=== PATIENT | male | born 1955 | race African-American/Black ===

== ENCOUNTER 2019-07-04 00:16 | Inpatient (IN) | payer BC ==
[~2019-07-04] VITALS: Ht 177.8 cm; Wt 95.3 kg
[2019-07-04] MEDS ORDERED: CLONIDINE 0.2MG TABLET PO ONE (02:15)
[2019-07-04 04:04] LABS: BASOPHILS % 0.6 % (0.0-2.0); EOSINOPHILS % 0.4 % (0.0-5.0); HEMATOCRIT. 38.7 % (42.0-52.0); LYMPHOCYTES % 7.9 % (20.0-50.0); MEAN CORPUSCULAR VOLUME 86.5 fL (80.0-94.0); MEAN PLATELET VOLUME 10.5 fl (7.4-10.4); MONOCYTES % 2.7 % (2.0-8.0); NEUTROPHILS % 88.4 % (40.0-76.0); PLATELET 184 x1000/uL (130-400); RED BLOOD CELL COUNT 4.48 mill/uL (4.7-6.1); RED CELL DISTRIBUTION WIDTH 14.9 % (11.6-14.6)
[2019-07-04 04:09] LABS: CHLORIDE 97 mEq/L (98-107)
[2019-07-04 04:11] LABS: PROTHROMBIN TIME 10.9 sec (9.6-11.0)
[2019-07-04] MEDS ORDERED: SODIUM CHLORIDE 0.9% 1,000 ML IV ONE (04:45)
[2019-07-04 05:28] LABS: CLARITY URINE CLEAR (CLEAR); COLOR URINE YELLOW (YELLOW); KETONES URINE TRACE (NEGATIVE); LEUKOCYTE ESTERASE URINE NEGATIVE (NEGATIVE); NITRITE URINE NEGATIVE (NEGATIVE); OCCULT BLOOD URINE NEGATIVE (NEGATIVE); PROTEIN URINE NEGATIVE (NEGATIVE); SPECIFIC GRAVITY URINE 1.021 (1.005-1.030); UROBILINOGEN URINE 0.2 E.U./dL (0.2-1.0)
[2019-07-04] MEDS ORDERED: GUAIFENESIN 200MG/10ML SUGAR FREE UDC PO PRN (09:30)
[2019-07-04] MEDS ORDERED: CLONIDINE 0.1MG TABLET PO PRN (09:30)
[2019-07-04] MEDS ORDERED: NITROGLYCERIN 0.4MG TABLET SL SL PRN (09:30)
[2019-07-04] MEDS ORDERED: DOCUSATE SODIUM 100MG CAPSULE PO PRN (09:30)
[2019-07-04] MEDS ORDERED: KETOROLAC 15MG/ML VIAL IV PRN (09:30)
[2019-07-04] MEDS ORDERED: ZOLPIDEM TARTRATE 5MG TABLET PO PRN (09:30)
[2019-07-04] MEDS ORDERED: IPRATROPIUM/ALBUTEROL 0.5-3(2.5)MG/3ML NEB NEB PRN (09:30)
[2019-07-04] MEDS ORDERED: MAGNESIUM/ALUMINUM HYDROXIDE/SIMETHICONE 30ML UDC PO PRN (09:30)
[2019-07-04] MEDS ORDERED: DEXTROSE 50% WATER 50ML SYRINGE IV PRN (09:30)
[2019-07-04] MEDS ORDERED: ONDANSETRON HCL 4MG/2ML INJ IV PRN (09:30)
[2019-07-04] MEDS ORDERED: INSULIN GLARGINE UD 100 UNITS/ML SYR SUBCUT SCH (10:00)
[2019-07-04] MEDS: INSULIN LISPRO 100 UNITS/ML SUBCUT SCH ×4 (11:05→21:00)
[2019-07-04] MEDS: ACETAMINOPHEN 325MG TABLET PO PRN ×2 (11:06→19:39)
[2019-07-04] MEDS: BLOOD SUGAR DIAGNOSTIC STRIP TEST SCH ×4 (11:09→21:55)
[2019-07-04 15:22] LABS: CREATINE KINASE 110 IU/L (39-308)
[2019-07-04 15:23] LABS: CREATINE KINASE MB FRACTION 1.1 ng/mL (0.5-3.6)
[2019-07-04 20:00] VITALS: BP 158/98
[2019-07-04 20:30] VITALS: BP 158/98
[2019-07-04] MEDS: FAMOTIDINE 20MG TABLET PO SCH (22:00)
[2019-07-04] MEDS: AMLODIPINE 10MG TABLET PO SCH (22:01)
[2019-07-04] MEDS: ENOXAPARIN 40MG/0.4ML SYR SUBCUT SCH (22:01)
[2019-07-04] MEDS: LISINOPRIL 20MG TABLET PO SCH (22:03)
[2019-07-04 23:52] VITALS: BP 143/80
[2019-07-05 00:57] LABS: CREATINE KINASE 102 IU/L (39-308)
[2019-07-05 00:58] LABS: CREATINE KINASE MB FRACTION 1.2 ng/mL (0.5-3.6)
[2019-07-05 04:00] VITALS: BP 135/82
[2019-07-05] MEDS: BLOOD SUGAR DIAGNOSTIC STRIP TEST SCH ×4 (07:20→21:01)
[2019-07-05] MEDS ORDERED: ASPI81TA47 MT (07:33)
[2019-07-05] MEDS ORDERED: CLON-457 PO (07:34)
[2019-07-05] MEDS ORDERED: HYDR-4135 MT (07:35)
[2019-07-05] MEDS ORDERED: METF-816 PO (07:37)
[2019-07-05] MEDS ORDERED: AMLO2.5T2 MT (07:43)
[2019-07-05] MEDS: INSULIN LISPRO 100 UNITS/ML SUBCUT SCH ×4 (07:50→22:16)
[2019-07-05 08:00] VITALS: BP 147/86
[2019-07-05] MEDS ORDERED: ASPIRIN 325MG EC TABLET PO SCH (09:00)
[2019-07-05] MEDS: LISINOPRIL 20MG TABLET PO SCH ×2 (09:50→20:56)
[2019-07-05] MEDS: AMLODIPINE 10MG TABLET PO SCH (09:51)
[2019-07-05] MEDS: FAMOTIDINE 20MG TABLET PO SCH ×2 (09:52→20:55)
[2019-07-05] MEDS ORDERED: INSULIN GLARGINE UD 100 UNITS/ML SYR SUBCUT SCH (11:30)
[2019-07-05 12:00] VITALS: BP 151/92
[2019-07-05 16:00] VITALS: BP 165/104
[2019-07-05] MEDS: ACETAMINOPHEN 325MG TABLET PO PRN ×2 (17:22→22:17)
[2019-07-05] MEDS ORDERED: AMLO10TA80 MT (17:35)
[2019-07-05] MEDS ORDERED: INSU100I28 SQ (17:35)
[2019-07-05] MEDS ORDERED: LOSA50TA41 MT (17:35)
[2019-07-05] MEDS ORDERED: METO-539 MT (17:35)
[2019-07-05 20:00] VITALS: BP 129/75
[2019-07-05] MEDS: ENOXAPARIN 40MG/0.4ML SYR SUBCUT SCH (20:54)
[2019-07-05] MEDS ORDERED: METOPROLOL TARTRATE 50MG TABLET PO SCH (21:00)
[2019-07-05 22:34] VITALS: BP 129/75
== END 2019-07-05 23:20 | disposition home or self-care (01) | DRG 637 ==
LOC: ER 01:10 → 6WST 04:54 → EDBEDREQ 04:57 → EDBEDREQTM 04:57 → ENRESERV 18:37
PROVIDERS: ADMIT Internal Medicine; ATTEND Internal Medicine
DX: E11.65 Type 2 diabetes mellitus with hyperglycemia (principal); E11.00 Type 2 diabetes mellitus with hyperosmolarity without nonketotic hyperglycemic-hyperosmolar coma (NKHHC); E87.1 Hypo-osmolality and hyponatremia; D64.9 Anemia, unspecified; E87.8 Other disorders of electrolyte and fluid balance, not elsewhere classified; I10 Essential (primary) hypertension; I16.0 Hypertensive urgency; Z79.899 Other long term (current) drug therapy; Z91.11 Patient's noncompliance with dietary regimen; Z91.14 Patient's other noncompliance with medication regimen; Z91.19 Patient's noncompliance with other medical treatment and regimen
CPT/HCPCS: 36415; 80053; 80061; 81003; 82550; 82553; 82962; 83036; 84484; 85025; 93005; 93970; 99285; J1650; J1815; J7030

== ENCOUNTER 2021-10-21 10:02 | Inpatient (IN) | payer BC ==
[~2021-10-21] VITALS: Ht 182.9 cm; Wt 101.2 kg
[2021-10-21] VITALS (20 sets, daily range): BP systolic 117–178; BP diastolic 70–136
[~2021-10-21 10:02] MED LIST: AMLO10TA80 MT; ASPI81TA47 MT; HYDR-4135 MT; INSU100I28 SQ; LOSA50TA41 MT; METF-874 PO; METO-539 MT
[2021-10-21] MEDS ORDERED: LORAZEPAM 2MG/ML CPJ IV ONE (10:45)
[2021-10-21 10:54] LABS: HEMATOCRIT. 37.7 % (42.0-52.0); HEMOGLOBIN. 12.2 g/dL (14.0-18.0); MEAN CORPUSCULAR HEMOGLOBIN 27.2 pg (28.0-32.0); MEAN CORPUSCULAR VOLUME 84.2 fL (80.0-94.0); MEAN PLATELET VOLUME 9.7 fl (7.4-10.4); PLATELET 173 x1000/uL (130-400); RED BLOOD CELL COUNT 4.48 mill/uL (4.7-6.1); RED CELL DISTRIBUTION WIDTH 18.1 % (11.6-14.6)
[2021-10-21] MEDS ORDERED: HYDRALAZINE 20MG/ML VIAL IV ONE (11:00)
[2021-10-21] MEDS ORDERED: IOHEXOL-350 100 ML BOTTLE ONE (11:00)
[2021-10-21] MEDS ORDERED: LEVETIRACETAM 1000MG PREMIX 100 ML IV ONE (11:00)
[2021-10-21 11:04] LABS: INR 1.1; PROTHROMBIN TIME 11.7 sec (9.6-11.0)
[2021-10-21 11:05] LABS: CHLORIDE 98 mEq/L (98-107)
[2021-10-21 11:12] LABS: ETHANOL BLOOD < 10 mg/dL
[2021-10-21] MEDS ORDERED: PROPOFOL 10MG/ML 100ML 100 ML IV ONE (11:15)
[2021-10-21] MEDS ORDERED: IPRATROPIUM BROMIDE (0.02%) 0.5MG/2.5ML NEB HHN STA (11:40)
[2021-10-21] MEDS ORDERED: ALBUTEROL (0.083%) 2.5MG/3ML NEB HHN STA (11:40)
[2021-10-21 11:43] LABS: PLATELET ESTIMATE NORMAL
[2021-10-21] MEDS ORDERED: SODIUM CHLORIDE 0.9% 1,000 ML IV ONE (11:45)
[2021-10-21 12:12] LABS: CLARITY URINE CLEAR (CLEAR); COLOR URINE YELLOW (YELLOW); KETONES URINE 1+ (NEGATIVE); LEUKOCYTE ESTERASE URINE NEGATIVE (NEGATIVE); NITRITE URINE NEGATIVE (NEGATIVE); OCCULT BLOOD URINE 1+ (NEGATIVE); PH URINE 6.5 (4.5-8.0); PROTEIN URINE 2+ (NEGATIVE); SPECIFIC GRAVITY URINE 1.029 (1.005-1.030); UROBILINOGEN URINE 0.2 E.U./dL (0.2-1.0)
[2021-10-21] MEDS ORDERED: LIDOCAINE HCL/PF 1% 10 MG/ML 5ML VIAL ONE (12:40)
[2021-10-21 12:50] LABS: *AMPHETAMINES SCREEN URINE NEGATIVE (NEGATIVE); *BARBITURATES SCREEN URINE NEGATIVE (NEGATIVE); *BENZODIAZEPINES SCREEN URINE NEGATIVE (NEGATIVE); *COCAINE SCREEN URINE NEGATIVE (NEGATIVE); CANNABINOID URINE SCREEN NEGATIVE (NEGATIVE); METHADONE URINE SCREEN NEGATIVE (NEGATIVE); OPIATES URINE SCREEN NEGATIVE (NEGATIVE); PHENCYCLIDINE URINE SCREEN NEGATIVE (NEGATIVE)
[2021-10-21] MEDS ORDERED: ACETAMINOPHEN 650MG SUPP PR ONE (13:15)
[2021-10-21] MEDS ORDERED: SODIUM CHLORIDE 0.9% 1000ML BAG (SEPSIS BOLUS) IV ONE (13:15)
[2021-10-21] MEDS ORDERED: PIPERACILLIN/TAZ 3.375G PREMIX 50 ML IV ONE (13:15)
[2021-10-21] MEDS ORDERED: VANCOMYCIN 1G PREMIX 200 ML IV ONE (13:15)
[2021-10-21] MEDS: LABETALOL 5MG/ML SYR 20 MG/4 ML SYRINGE IV ONE ×2 (13:42→14:36)
[2021-10-21 13:57] LABS: BG BASE EXCESS 2.4 mmol/L (-2.0-2.0); BG CARBOXYHEMOGLOBIN 0.4 % (0.5-1.5); BG DEOXYHEMOGLOBIN 0.8 % (0.0-5.0); BG FRACTION INSPIRED OXYGEN 60; BG HCO3 ACT 26.8 mmol/L (22.0-26.0); BG METHEMOGLOBIN 0.4 % (0.0-1.5); BG OXYGEN SATURATION 99.2 % (92.0-98.5); BG OXYHEMOGLOBIN 98.4 % (94.0-97.0); BG PCO2 40.9 mmHg (35.0-45.0); BG PH 7.434 (7.350-7.450); BG PO2 158.9 mmHg (75.0-100.0); BG SAMPLE SITE LEFT BRACHIAL; BG TOTAL HEMOGLOBIN 13.3 g/dL (12.0-18.0); BG VENT MODE VENT - AC
[2021-10-21] MEDS ORDERED: IPRATROPIUM/ALBUTEROL 0.5-3(2.5)MG/3ML NEB NEB PRN (17:00)
[2021-10-21] MEDS: SODIUM CHLORIDE 0.9% 1,000 ML IV SCH (17:29)
[2021-10-21] MEDS: PANTOPRAZOLE SODIUM 40 MG/VIAL IV SCH (17:32)
[2021-10-21] MEDS: PROPOFOL 10MG/ML 100ML 100 ML IV PRN ×2 (17:52→20:37)
[2021-10-21] MEDS ORDERED: CEFTRIAXONE 2 G PREMIX 50 ML IV SCH (18:15)
[2021-10-21] MEDS ORDERED: DEXTROSE 50% WATER 50ML SYRINGE IV PRN (19:00)
[2021-10-21] MEDS ORDERED: LISI2.5T47 MT (19:03)
[2021-10-21] MEDS ORDERED: HYDR12.54 MT (19:03)
[2021-10-21] MEDS ORDERED: INSULIN LISPRO 100 UNITS/ML SUBCUT NR (19:30)
[2021-10-21] MEDS: HYDRALAZINE 20MG/ML VIAL IV PRN (19:41)
[2021-10-21] MEDS: VANCOMYCIN 750MG PREMIX 150 ML IV SCH (19:44)
[2021-10-21] MEDS: CEFTRIAXONE 2 G in DEXTROSE 5% WATER 50 ML IV SCH (20:26)
[2021-10-21] MEDS: BLOOD SUGAR DIAGNOSTIC STRIP TEST SCH (20:39)
[2021-10-21] MEDS ORDERED: INSULIN REGULAR (HUMULIN R) 300UNITS/3ML VIAL SUBCUT NR (21:00)
[2021-10-21] MEDS: WATER IV SCH (21:02)
[2021-10-21] MEDS: DEXT 5% IV SCH (21:02)
[2021-10-21] MEDS: ACYCLOVIR IV SCH (21:02)
[2021-10-21] MEDS: INSULIN LISPRO 100 UNITS/ML SUBCUT SCH (21:05)
[2021-10-21] MEDS: AMPICILLIN 2,000 MG in SODIUM CHLORIDE 0.9% 100 ML IV SCH (23:19)
[2021-10-21] MEDS ORDERED: THIAMINE HCL 100 MG in SODIUM CHLORIDE 0.9% 49 ML IV NR (23:30)
[2021-10-21 23:37] LABS: CHLORIDE 103 mEq/L (98-107)
[2021-10-21 23:49] LABS: CREATINE KINASE 370 IU/L (39-308); CREATINE KINASE MB FRACTION < 1.0 ng/mL (0.5-3.6)
[2021-10-22] VITALS (87 sets, daily range): BP systolic 69–191; BP diastolic 34–114
[2021-10-22] MEDS: BLOOD SUGAR DIAGNOSTIC STRIP TEST SCH ×5 (00:08→20:43)
[2021-10-22] MEDS ORDERED: DEXT 5%/0.9% NACL KCL 30MEQ/L 1,000 ML IV NR (00:30)
[2021-10-22] MEDS ORDERED: POTASSIUM CHLORIDE IV NR (00:45)
[2021-10-22] MEDS ORDERED: DEXT IV NR (00:45)
[2021-10-22] MEDS ORDERED: NACL IV NR (00:45)
[2021-10-22] MEDS: SODIUM CHLORIDE 0.9% 1,000 ML IV SCH ×2 (02:25→12:04)
[2021-10-22] MEDS: AMPICILLIN 2,000 MG in SODIUM CHLORIDE 0.9% 100 ML IV SCH ×5 (03:12→20:29)
[2021-10-22] MEDS: PROPOFOL 10MG/ML 100ML 100 ML IV PRN ×2 (03:23→08:12)
[2021-10-22] MEDS: HYDRALAZINE 20MG/ML VIAL IV PRN ×4 (04:18→22:20)
[2021-10-22] MEDS: ACYCLOVIR IV SCH ×3 (05:00→20:31)
[2021-10-22] MEDS: DEXT 5% IV SCH ×3 (05:00→20:31)
[2021-10-22] MEDS: WATER IV SCH ×3 (05:00→20:31)
[2021-10-22 05:48] LABS: BASOPHILS % 0.5 % (0.0-2.0); HEMATOCRIT. 35.4 % (42.0-52.0); HEMOGLOBIN. 11.5 g/dL (14.0-18.0); LYMPHOCYTES % 11.4 % (20.0-50.0); MEAN CORPUSCULAR HEMOGLOBIN 26.8 pg (28.0-32.0); MEAN CORPUSCULAR VOLUME 82.9 fL (80.0-94.0); MEAN PLATELET VOLUME 9.9 fl (7.4-10.4); MONOCYTES % 8.9 % (2.0-8.0); NEUTROPHILS % 79.2 % (40.0-76.0); PLATELET 161 x1000/uL (130-400); RED BLOOD CELL COUNT 4.27 mill/uL (4.7-6.1); RED CELL DISTRIBUTION WIDTH 18.1 % (11.6-14.6)
[2021-10-22 06:22] LABS: CREATINE KINASE MB FRACTION 1.3 ng/mL (0.5-3.6)
[2021-10-22] MEDS: INSULIN LISPRO 100 UNITS/ML SUBCUT SCH ×4 (06:28→20:47)
[2021-10-22 06:32] LABS: VITAMIN B12 SERUM 1739 pg/mL (211-911)
[2021-10-22 06:47] LABS: FOLIC ACID (FOLATE) SERUM > 20.00 ng/mL (>5.38)
[2021-10-22] MEDS: CEFTRIAXONE 2 G in DEXTROSE 5% WATER 50 ML IV SCH ×2 (08:09→20:29)
[2021-10-22] MEDS: PANTOPRAZOLE SODIUM 40 MG/VIAL IV SCH (08:09)
[2021-10-22] MEDS: ENOXAPARIN 40MG/0.4ML SYR SUBCUT SCH (08:09)
[2021-10-22] MEDS ORDERED: LEVETIRACETAM 500 MG in SODIUM CHLORIDE 0.9% 100 ML IV SCH (08:30)
[2021-10-22 08:56] LABS: BG BASE EXCESS 0.9 mmol/L (-2.0-2.0); BG CARBOXYHEMOGLOBIN 0.3 % (0.5-1.5); BG DEOXYHEMOGLOBIN 2.4 % (0.0-5.0); BG METHEMOGLOBIN 0.3 % (0.0-1.5); BG OXYGEN SATURATION 97.6 % (92.0-98.5); BG PCO2 38.2 mmHg (35.0-45.0); BG PH 7.434 (7.350-7.450); BG SAMPLE SITE RIGHT RADIAL; BG TOTAL HEMOGLOBIN 12.2 g/dL (12.0-18.0); BG VENT MODE VENT - AC
[2021-10-22] MEDS: VANCOMYCIN 750MG PREMIX 150 ML IV SCH (09:15)
[2021-10-22] MEDS: LEVETIRACETAM 500MG PREMIX 100 ML IV SCH ×2 (10:46→20:31)
[2021-10-22] MEDS: INSULIN GLARGINE 100 UNITS/ML SUBCUT SCH (12:05)
[2021-10-22] MEDS ORDERED: PROPOFOL 10MG/ML 100ML 100 ML IV PRN (16:30)
[2021-10-22] MEDS: THIAMINE HCL 100 MG in SODIUM CHLORIDE 0.9% 49 ML IV SCH (17:02)
[2021-10-22] MEDS: AMLODIPINE 10MG TABLET PO SCH ×2 (17:13→17:25)
[2021-10-22] MEDS ORDERED: LABETALOL 5MG/ML SYR 20 MG/4 ML SYRINGE IV SCH (17:15)
[2021-10-22] MEDS: ASPIRIN 81MG TABLET PO SCH (17:25)
[2021-10-22 17:39] LABS: BG BASE EXCESS 1.8 mmol/L (-2.0-2.0); BG CARBOXYHEMOGLOBIN 0.3 % (0.5-1.5); BG DEOXYHEMOGLOBIN 1.7 % (0.0-5.0); BG HCO3 ACT 26.6 mmol/L (22.0-26.0); BG METHEMOGLOBIN 0.3 % (0.0-1.5); BG OXYGEN SATURATION 98.3 % (92.0-98.5); BG OXYHEMOGLOBIN 97.7 % (94.0-97.0); BG PCO2 42.2 mmHg (35.0-45.0); BG PH 7.417 (7.350-7.450); BG PO2 115.1 mmHg (75.0-100.0); BG SAMPLE SITE RIGHT RADIAL; BG TOTAL HEMOGLOBIN 12.7 g/dL (12.0-18.0); BG TOTAL RESPIRATORY RATE 10 b/min; BG VENT MODE VENT - CPAP
[2021-10-22] MEDS ORDERED: HALOPERIDOL LACTATE 5MG/ML VIAL IM NR ×2 (17:39→18:00)
[2021-10-22] MEDS ORDERED: LABETALOL 5MG/ML SYR 20 MG/4 ML SYRINGE IV NR (18:00)
[2021-10-22] MEDS ORDERED: LORAZEPAM 2MG/ML CPJ IV PRN (18:00)
[2021-10-22] MEDS ORDERED: VANCOMYCIN 750 MG in DEXT 5% WATER 250 ML IV SCH (20:00)
[2021-10-22] MEDS: ATORVASTATIN CALCIUM 40MG TABLET PO SCH (20:25)
[2021-10-22] MEDS ORDERED: ATORVASTATIN CALCIUM 40MG TABLET PO SCH (21:00)
[2021-10-23] VITALS (34 sets, daily range): BP systolic 127–196; BP diastolic 69–139
[2021-10-23] MEDS: AMPICILLIN 2,000 MG in SODIUM CHLORIDE 0.9% 100 ML IV SCH ×4 (00:16→12:23)
[2021-10-23] MEDS: SODIUM CHLORIDE 0.9% 1,000 ML IV SCH ×2 (00:18→08:31)
[2021-10-23] MEDS ORDERED: VANCOMYCIN 1GM PMX (XELLIA) 200 ML IV SCH (04:00)
[2021-10-23 05:34] LABS: BASOPHILS % 0.4 % (0.0-2.0); HEMATOCRIT. 35.6 % (42.0-52.0); HEMOGLOBIN. 11.5 g/dL (14.0-18.0); MEAN CORPUSCULAR VOLUME 83.9 fL (80.0-94.0); MONOCYTES % 6.1 % (2.0-8.0); NEUTROPHILS % 83.5 % (40.0-76.0); PLATELET 131 x1000/uL (130-400); RED BLOOD CELL COUNT 4.25 mill/uL (4.7-6.1); RED CELL DISTRIBUTION WIDTH 18.3 % (11.6-14.6)
[2021-10-23] MEDS: BLOOD SUGAR DIAGNOSTIC STRIP TEST SCH ×4 (05:47→21:12)
[2021-10-23] MEDS: ACYCLOVIR IV SCH ×2 (05:48→13:23)
[2021-10-23] MEDS: WATER IV SCH ×2 (05:48→13:23)
[2021-10-23] MEDS: DEXT 5% IV SCH ×2 (05:48→13:23)
[2021-10-23] MEDS: INSULIN LISPRO 100 UNITS/ML SUBCUT SCH ×4 (06:54→21:00)
[2021-10-23] MEDS: CEFTRIAXONE 2 G in DEXTROSE 5% WATER 50 ML IV SCH (07:44)
[2021-10-23] MEDS: LEVETIRACETAM 500MG PREMIX 100 ML IV SCH ×2 (08:31→21:04)
[2021-10-23] MEDS: CLOPIDOGREL 75MG TABLET PO SCH (08:31)
[2021-10-23] MEDS: ASPIRIN 81MG TABLET PO SCH (08:31)
[2021-10-23] MEDS: PANTOPRAZOLE SODIUM 40 MG/VIAL IV SCH (08:31)
[2021-10-23] MEDS: ENOXAPARIN 40MG/0.4ML SYR SUBCUT SCH (08:31)
[2021-10-23] MEDS: AMLODIPINE 10MG TABLET PO SCH (08:32)
[2021-10-23] MEDS: ONDANSETRON HCL 4MG/2ML INJ IV PRN (09:01)
[2021-10-23] MEDS: THIAMINE HCL 100 MG in SODIUM CHLORIDE 0.9% 49 ML IV SCH (09:54)
[2021-10-23] MEDS: INSULIN GLARGINE 100 UNITS/ML SUBCUT SCH (10:00)
[2021-10-23] MEDS: METOPROLOL TARTRATE 25MG TABLET PO SCH ×2 (10:00→21:03)
[2021-10-23] MEDS: HYDRALAZINE 20MG/ML VIAL IV PRN (10:52)
[2021-10-23] MEDS ORDERED: METOCLOPRAMIDE HCL 10MG/2ML VIAL IV PRN (11:45)
[2021-10-23] MEDS: DEXT 5%/0.9% NACL 1,000 ML IV SCH (12:23)
[2021-10-23 13:10] LABS: HIV SCREEN 4G Non Reactive (Non Reactive)
[2021-10-23] MEDS: ATORVASTATIN CALCIUM 40MG TABLET PO SCH (21:03)
[2021-10-23] MEDS: ACETAMINOPHEN 325MG TABLET PO PRN (21:38)
[2021-10-23] MEDS ORDERED: VANCOMYCIN 1G PREMIX 200 ML IV SCH (22:00)
[2021-10-24] VITALS (7 sets, daily range): BP systolic 137–187; BP diastolic 84–104
[2021-10-24] MEDS: DEXT 5%/0.9% NACL 1,000 ML IV SCH (02:52)
[2021-10-24] MEDS: HYDRALAZINE 20MG/ML VIAL IV PRN ×2 (05:08→16:00)
[2021-10-24] MEDS: ACETAMINOPHEN 325MG TABLET PO PRN (06:06)
[2021-10-24] MEDS: BLOOD SUGAR DIAGNOSTIC STRIP TEST SCH ×4 (07:10→20:44)
[2021-10-24 07:27] LABS: BASOPHILS % 0.4 % (0.0-2.0); EOSINOPHILS % 0.4 % (0.0-5.0); HEMATOCRIT. 34.1 % (42.0-52.0); LYMPHOCYTES % 14.2 % (20.0-50.0); MEAN CORPUSCULAR HEMOGLOBIN 27.4 pg (28.0-32.0); MEAN PLATELET VOLUME 10.3 fl (7.4-10.4); MONOCYTES % 7.7 % (2.0-8.0); NEUTROPHILS % 77.3 % (40.0-76.0); PLATELET 121 x1000/uL (130-400); RED BLOOD CELL COUNT 4.02 mill/uL (4.7-6.1); RED CELL DISTRIBUTION WIDTH 18.1 % (11.6-14.6)
[2021-10-24] MEDS: INSULIN LISPRO 100 UNITS/ML SUBCUT SCH ×4 (07:40→20:44)
[2021-10-24] MEDS ORDERED: CEFTRIAXONE 2 G PREMIX 50 ML IV SCH (08:00)
[2021-10-24] MEDS: PANTOPRAZOLE SODIUM 40 MG/VIAL IV SCH (08:43)
[2021-10-24] MEDS: CEFTRIAXONE 2 G in DEXTROSE 5% WATER 50 ML IV SCH (08:43)
[2021-10-24] MEDS: CLOPIDOGREL 75MG TABLET PO SCH (08:44)
[2021-10-24] MEDS: ASPIRIN 81MG TABLET PO SCH (08:44)
[2021-10-24] MEDS: METOPROLOL TARTRATE 25MG TABLET PO SCH (08:44)
[2021-10-24] MEDS: AMLODIPINE 10MG TABLET PO SCH (08:44)
[2021-10-24] MEDS: ENOXAPARIN 40MG/0.4ML SYR SUBCUT SCH (08:45)
[2021-10-24 08:58] LABS: CHLORIDE 113 mEq/L (98-107)
[2021-10-24] MEDS: THIAMINE HCL 100 MG in SODIUM CHLORIDE 0.9% 49 ML IV SCH (09:19)
[2021-10-24] MEDS ORDERED: POTASSIUM CHLORIDE 20MEQ TABLET SR PO NR (10:30)
[2021-10-24] MEDS: INSULIN GLARGINE 100 UNITS/ML SUBCUT SCH (11:09)
[2021-10-24] MEDS: LEVETIRACETAM 500MG PREMIX 100 ML IV SCH ×2 (11:10→20:44)
[2021-10-24] MEDS: ATORVASTATIN CALCIUM 40MG TABLET PO SCH (20:43)
[2021-10-24] MEDS: METOPROLOL TARTRATE 50MG TABLET PO SCH (20:44)
[2021-10-25] VITALS (7 sets, daily range): BP systolic 163–183; BP diastolic 85–103
[2021-10-25] MEDS: HYDRALAZINE 20MG/ML VIAL IV PRN ×3 (00:13→16:54)
[2021-10-25] MEDS: BLOOD SUGAR DIAGNOSTIC STRIP TEST SCH ×4 (06:42→20:35)
[2021-10-25] MEDS: INSULIN LISPRO 100 UNITS/ML SUBCUT SCH ×4 (06:43→20:35)
[2021-10-25 07:16] LABS: BASOPHILS % 0.4 % (0.0-2.0); EOSINOPHILS % 1.5 % (0.0-5.0); HEMATOCRIT. 35.9 % (42.0-52.0); HEMOGLOBIN. 11.8 g/dL (14.0-18.0); LYMPHOCYTES % 20.1 % (20.0-50.0); MEAN CORPUSCULAR HEMOGLOBIN 27.5 pg (28.0-32.0); MEAN CORPUSCULAR VOLUME 83.3 fL (80.0-94.0); MEAN PLATELET VOLUME 10.4 fl (7.4-10.4); MONOCYTES % 10.6 % (2.0-8.0); NEUTROPHILS % 67.4 % (40.0-76.0); PLATELET 133 x1000/uL (130-400); RED BLOOD CELL COUNT 4.31 mill/uL (4.7-6.1); RED CELL DISTRIBUTION WIDTH 17.7 % (11.6-14.6)
[2021-10-25 08:01] LABS: CHLORIDE 106 mEq/L (98-107)
[2021-10-25] MEDS: ENOXAPARIN 40MG/0.4ML SYR SUBCUT SCH (08:22)
[2021-10-25] MEDS: ASPIRIN 81MG TABLET PO SCH (08:23)
[2021-10-25] MEDS: CLOPIDOGREL 75MG TABLET PO SCH (08:23)
[2021-10-25] MEDS: METOPROLOL TARTRATE 50MG TABLET PO SCH ×2 (08:23→20:35)
[2021-10-25] MEDS: AMLODIPINE 10MG TABLET PO SCH (08:23)
[2021-10-25] MEDS: CEFTRIAXONE 2 G in DEXTROSE 5% WATER 50 ML IV SCH (08:23)
[2021-10-25] MEDS: PANTOPRAZOLE SODIUM 40 MG/VIAL IV SCH (08:23)
[2021-10-25] MEDS: INSULIN GLARGINE 100 UNITS/ML SUBCUT SCH (09:14)
[2021-10-25] MEDS ORDERED: LOSARTAN POTASSIUM 25 MG TABLET PO SCH (09:15)
[2021-10-25] MEDS ORDERED: POTASSIUM CHLORIDE 20MEQ TABLET SR PO NR (09:15)
[2021-10-25] MEDS: LEVETIRACETAM 500MG PREMIX 100 ML IV SCH ×2 (09:45→20:34)
[2021-10-25 10:39] LABS: BASOPHILS % 0.4 % (0.0-2.0); EOSINOPHILS % 1.3 % (0.0-5.0); HEMATOCRIT. 34.9 % (42.0-52.0); HEMOGLOBIN. 11.3 g/dL (14.0-18.0); MEAN CORPUSCULAR HEMOGLOBIN 27.1 pg (28.0-32.0); MEAN CORPUSCULAR VOLUME 83.9 fL (80.0-94.0); MEAN PLATELET VOLUME 9.8 fl (7.4-10.4); MONOCYTES % 9.9 % (2.0-8.0); NEUTROPHILS % 72.4 % (40.0-76.0); PLATELET 136 x1000/uL (130-400); RED BLOOD CELL COUNT 4.16 mill/uL (4.7-6.1); RED CELL DISTRIBUTION WIDTH 18.1 % (11.6-14.6)
[2021-10-25 10:58] LABS: CHLORIDE 104 mEq/L (98-107)
[2021-10-25] MEDS ORDERED: POTASSIUM CHLORIDE 20MEQ/PACKET PO NR (12:00)
[2021-10-25] MEDS: ATORVASTATIN CALCIUM 40MG TABLET PO SCH (20:35)
[2021-10-26] VITALS: BP 147/76
[2021-10-26 04:00] VITALS: BP 152/79
[2021-10-26] MEDS: INSULIN LISPRO 100 UNITS/ML SUBCUT SCH ×4 (06:10→20:42)
[2021-10-26] MEDS: BLOOD SUGAR DIAGNOSTIC STRIP TEST SCH ×4 (06:10→20:44)
[2021-10-26 06:23] LABS: BASOPHILS % 0.5 % (0.0-2.0); EOSINOPHILS % 2.6 % (0.0-5.0); HEMATOCRIT. 35.3 % (42.0-52.0); HEMOGLOBIN. 11.6 g/dL (14.0-18.0); LYMPHOCYTES % 23.8 % (20.0-50.0); MEAN CORPUSCULAR HEMOGLOBIN 27.3 pg (28.0-32.0); MEAN CORPUSCULAR VOLUME 83.3 fL (80.0-94.0); MEAN PLATELET VOLUME 10.2 fl (7.4-10.4); MONOCYTES % 11.3 % (2.0-8.0); NEUTROPHILS % 61.8 % (40.0-76.0); PLATELET 147 x1000/uL (130-400); RED BLOOD CELL COUNT 4.24 mill/uL (4.7-6.1); RED CELL DISTRIBUTION WIDTH 17.6 % (11.6-14.6)
[2021-10-26 06:51] LABS: CHLORIDE 109 mEq/L (98-107)
[2021-10-26 08:00] VITALS: BP 176/96
[2021-10-26] MEDS: ENOXAPARIN 40MG/0.4ML SYR SUBCUT SCH (08:20)
[2021-10-26] MEDS: ASPIRIN 81MG TABLET PO SCH (08:20)
[2021-10-26] MEDS: METOPROLOL TARTRATE 50MG TABLET PO SCH ×2 (08:20→20:43)
[2021-10-26] MEDS: LOSARTAN POTASSIUM 50 MG TABLET PO SCH (08:20)
[2021-10-26] MEDS: AMLODIPINE 10MG TABLET PO SCH (08:20)
[2021-10-26] MEDS: CLOPIDOGREL 75MG TABLET PO SCH (08:20)
[2021-10-26] MEDS: CEFTRIAXONE 2 G in DEXTROSE 5% WATER 50 ML IV SCH (08:20)
[2021-10-26] MEDS: HYDRALAZINE 20MG/ML VIAL IV PRN (08:21)
[2021-10-26] MEDS: FAMOTIDINE 20MG/2ML VIAL IV SCH ×2 (09:39→20:43)
[2021-10-26] MEDS: LEVETIRACETAM 500MG PREMIX 100 ML IV SCH ×2 (09:39→20:43)
[2021-10-26] MEDS: INSULIN GLARGINE 100 UNITS/ML SUBCUT SCH (09:51)
[2021-10-26 12:00] VITALS: BP 152/87
[2021-10-26] MEDS ORDERED: POTASSIUM CHLORIDE 20MEQ/PACKET PO NR (12:00)
[2021-10-26] MEDS: HYDRALAZINE HCL 50MG TABLET PO SCH ×3 (12:07→22:56)
[2021-10-26 16:00] VITALS: BP 159/89
[2021-10-26 20:00] VITALS: BP 176/92
[2021-10-26] MEDS: ATORVASTATIN CALCIUM 40MG TABLET PO SCH (20:42)
[2021-10-26] MEDS: ENOXAPARIN 30MG/0.3ML SYR SUBCUT SCH (20:43)
[2021-10-27] VITALS (11 sets, daily range): BP systolic 136–184; BP diastolic 62–115
[2021-10-27 06:01] LABS: CHLORIDE 109 mEq/L (98-107)
[2021-10-27] MEDS: INSULIN LISPRO 100 UNITS/ML SUBCUT SCH ×4 (07:04→20:34)
[2021-10-27] MEDS: BLOOD SUGAR DIAGNOSTIC STRIP TEST SCH ×4 (07:04→20:34)
[2021-10-27] MEDS: HYDRALAZINE HCL 50MG TABLET PO SCH ×3 (07:08→22:00)
[2021-10-27] MEDS: CEFTRIAXONE 2 G in DEXTROSE 5% WATER 50 ML IV SCH (08:34)
[2021-10-27] MEDS: ENOXAPARIN 30MG/0.3ML SYR SUBCUT SCH ×2 (08:35→20:18)
[2021-10-27] MEDS: LEVETIRACETAM 500MG PREMIX 100 ML IV SCH ×2 (08:35→20:18)
[2021-10-27] MEDS: CLOPIDOGREL 75MG TABLET PO SCH (08:35)
[2021-10-27] MEDS: ASPIRIN 81MG TABLET PO SCH (08:35)
[2021-10-27] MEDS: LOSARTAN POTASSIUM 50 MG TABLET PO SCH (08:36)
[2021-10-27] MEDS: AMLODIPINE 10MG TABLET PO SCH (08:36)
[2021-10-27] MEDS: METOPROLOL TARTRATE 50MG TABLET PO SCH ×2 (08:36→20:19)
[2021-10-27] MEDS: FAMOTIDINE 20MG/2ML VIAL IV SCH ×2 (10:18→20:33)
[2021-10-27] MEDS: INSULIN GLARGINE 100 UNITS/ML SUBCUT SCH (10:19)
[2021-10-27] MEDS ORDERED: POTASSIUM CHLORIDE 20MEQ TABLET SR PO SCH (11:30)
[2021-10-27] MEDS: HYDRALAZINE 20MG/ML VIAL IV PRN ×2 (18:33→22:29)
[2021-10-27] MEDS: ATORVASTATIN CALCIUM 40MG TABLET PO SCH (20:18)
[2021-10-28] VITALS: BP 161/86
[2021-10-28 04:00] VITALS: BP 165/96
[2021-10-28] MEDS: HYDRALAZINE 20MG/ML VIAL IV PRN (04:11)
[2021-10-28] MEDS: HYDRALAZINE HCL 50MG TABLET PO SCH (05:22)
[2021-10-28] MEDS: BLOOD SUGAR DIAGNOSTIC STRIP TEST SCH (06:15)
[2021-10-28] MEDS: INSULIN LISPRO 100 UNITS/ML SUBCUT SCH (06:15)
[2021-10-28 07:08] LABS: BASOPHILS % 0.6 % (0.0-2.0); EOSINOPHILS % 2.4 % (0.0-5.0); HEMATOCRIT. 35.5 % (42.0-52.0); HEMOGLOBIN. 11.4 g/dL (14.0-18.0); MEAN CORPUSCULAR VOLUME 84.4 fL (80.0-94.0); MEAN PLATELET VOLUME 9.4 fl (7.4-10.4); MONOCYTES % 10.3 % (2.0-8.0); NEUTROPHILS % 62.7 % (40.0-76.0); PLATELET 204 x1000/uL (130-400); RED BLOOD CELL COUNT 4.21 mill/uL (4.7-6.1); RED CELL DISTRIBUTION WIDTH 17.8 % (11.6-14.6)
[2021-10-28 07:14] LABS: CHLORIDE 109 mEq/L (98-107)
[2021-10-28 08:00] VITALS: BP 176/94
[2021-10-28] MEDS: ONDANSETRON HCL 4MG/2ML INJ IV PRN (08:33)
[2021-10-28] MEDS: CLOPIDOGREL 75MG TABLET PO SCH (08:34)
[2021-10-28] MEDS: AMLODIPINE 10MG TABLET PO SCH (08:34)
[2021-10-28] MEDS: LOSARTAN POTASSIUM 50 MG TABLET PO SCH (08:34)
[2021-10-28] MEDS: ENOXAPARIN 30MG/0.3ML SYR SUBCUT SCH (08:34)
[2021-10-28] MEDS: ASPIRIN 81MG TABLET PO SCH (08:34)
[2021-10-28] MEDS: METOPROLOL TARTRATE 50MG TABLET PO SCH (08:35)
[2021-10-28] MEDS ORDERED: LEVETIRACETAM 500MG TABLET PO SCH (09:00)
[2021-10-28] MEDS ORDERED: FAMOTIDINE 20MG TABLET PO SCH (09:00)
[2021-10-28] MEDS: INSULIN GLARGINE 100 UNITS/ML SUBCUT SCH (10:52)
[2021-10-28 11:00] VITALS: BP 145/85
== END 2021-10-28 12:04 | DRG 871 ==
LOC: ER 10:13 → EDBEDREQ 10:25 → EDBEDREQTM 11:46 → EDBEDREQ 11:46 → EDBEDREQSVC 11:46 → MICUSO 12:46 → EDBEDREQTM 12:51 → EDBEDREQ 12:51 → ENRESERV 14:03 → MICUNO 21:46 → 8WST 10-23 14:02
PROVIDERS: ADMIT Internal Medicine; ATTEND Internal Medicine
PROC: 0BH17EZ Insertion of Endotracheal Airway into Trachea, Via Natural or Artificial Opening (ICD-10-PCS; principal; 2021-10-21)
PROC: 5A1945Z Respiratory Ventilation, 24-96 Consecutive Hours (ICD-10-PCS; 2021-10-21)
PROC: 02HV33Z Insertion of Infusion Device into Superior Vena Cava, Percutaneous Approach (ICD-10-PCS; 2021-10-21)
PROC: B548ZZA Ultrasonography of Superior Vena Cava, Guidance (ICD-10-PCS; 2021-10-21)
PROC: 4A00X4Z Measurement of Central Nervous Electrical Activity, External Approach (ICD-10-PCS; 2021-10-24)
DX: A41.51 Sepsis due to Escherichia coli [E. coli] (principal); I63.9 Cerebral infarction, unspecified; N17.0 Acute kidney failure with tubular necrosis; J96.00 Acute respiratory failure, unspecified whether with hypoxia or hypercapnia; J18.9 Pneumonia, unspecified organism; I21.4 Non-ST elevation (NSTEMI) myocardial infarction; G03.9 Meningitis, unspecified; J69.0 Pneumonitis due to inhalation of food and vomit; G93.40 Encephalopathy, unspecified; N39.0 Urinary tract infection, site not specified; G81.91 Hemiplegia, unspecified affecting right dominant side; E11.65 Type 2 diabetes mellitus with hyperglycemia; E78.5 Hyperlipidemia, unspecified; R56.9 Unspecified convulsions; R79.1 Abnormal coagulation profile; D64.9 Anemia, unspecified; E87.6 Hypokalemia; Z20.822 Contact with and (suspected) exposure to COVID-19; R79.89 Other specified abnormal findings of blood chemistry; R65.20 Severe sepsis without septic shock; I10 Essential (primary) hypertension
CPT/HCPCS: 31500; 36415; 36573; 36600; 70496; 70498; 70551; 71045; 74018; 80048; 80053; 80061; 80305; 80320; 81003; 82375; 82550; 82553; 82607; 82746; 82805; 82962; 83036; 83605; 83721; 83735; 84145; 84478; 84484; 85025; 86695; 86696; 87070; 87077; 87186; 87389; 87426; 92523; 92610; 93005; 93306; 93970; 94002; 94003; 94640; 95816; 97110; 97112; 97116; 97162; 97166; 97530; 97535; 99285; C1725; C9113; J0133; J0290; J0360; J0696; J1630; J1650; J1815; J1953; J2060; J2405; J2543; J2704; J3370; J3411; J3480; J3490; J7030; J7042; J7050; J7060; J7070; Q9967; A4315; G0480